=== PATIENT | female | born 1965 | race Caucasian/White ===

== ENCOUNTER 2020-08-21 15:36 | Emergency (ER) | payer OTHER, SELFPAY ==
--- NOTE | 2020-08-21 15:42 | ED.SKABFB ---
HPI - Skin/Abscess/Foreign Bdy General Chief complaint: Skin/Abscess/Foreign Body Stated complaint: pos insect sting Time Seen by Provider: 08/21/20 15:48 Source: patient and RN notes reviewed Mode of arrival: ambulatory Limitations: no limitations History of Present Illness HPI narrative: 84-year-old female presents concern for yellowjacket sting to the right dorsal hand and nose. Reports this happened approximately 45 minutes prior to arrival. Denies any intervention. She denies any swollen lips, swollen tongue, trouble breathing. Reports redness at the sting sites MD complaint: insect bite/sting Related Data Home Medications Medication Instructions Recorded Confirmed ibuprofen 800 mg PO Q6-8H PRN 08/21/20 08/21/20 levothyroxine [Synthroid] 175 mcg PO DAILY 08/21/20 08/21/20 losartan 50 mg PO DAILY 08/21/20 08/21/20 Allergies Allergy/AdvReac Type Severity Reaction Status Date / Time No Known Allergies Allergy Unknown Unverified 08/21/20 15:47 Z-SASHA AdvReac Mild DON'T WORK Uncoded 08/21/20 15:47 Review of Systems Review of Systems: Narrative: CONSTITUTIONAL: Denies malaise, chills, sweats, or fever. EYES: Denies visual changes ENT: Denies rhinorrhea, congestion, swollen lips, swollen tongue CARDIOVASCULAR: Denies chest pain, palpitations, or edema. RESPIRATORY: Denies cough or dyspnea. GASTROINTESTINAL: Denies abdominal pain, nausea, vomiting, diarrhea SKIN: Reports redness at sting site to the nose and the right hand MUSCULOSKELETAL: Denies myalgia. NEUROLOGIC: Denies headache. All systems reviewed & are unremarkable except as noted in HPI and below PMFSH Comments At time of signature, agree with nursing past medical, surgical, social and family history. There is no relevant family history pertinent to the presenting complaint Exam Narrative: Exam Narrative: GENERAL: Well-appearing, well-nourished, and in no acute distress. HEAD: Normocephalic, atraumatic. EYES: PERRLA, conjunctivae clear, and EOMI. ENT: Mucous membranes moist. Oropharynx without edema, erythema or lesions. Nares clear NECK: Supple. No lymphadenopathy CHEST: Clear to auscultation. No respiratory distress. HEART: Regular rate and rhythm. SKIN: Warm, dry. Sting site noted to dorsal right hand with very mild erythema, no tenderness, induration or edema noted. Sting site noted to the front of the nose with mild erythema, no edema, induration, tenderness, no facial swelling NEURO: Alert and oriented x3. PSYCH: Normal mood and affect Course Course Emergency Course: Patient is aware of diagnosis, understands and agrees to treatment plan. Anticipatory guidance given. Patient agrees to follow-up as directed and is aware of reasons to seek care at the emergency department. Portions of this record may have been created with voice recognition software Vital Signs Vital signs: Reviewed. MDM - Skin/Abscess/Foreign Bdy MDM Narrative Medical decision making narrative: Does not appear at this time to be erythema multiforme, bullous, SJS, TEN; no evidence at this time to suggest RMSF, endocarditis or Lyme disease; patient looks well, nontoxic and is tolerating oral intake; no neurologic signs or symptoms; no headache, photophobia or neck pain; afebrile; appropriate for initial outpatient treatment; discussed the importance of follow-up, patient agrees; question, viral exanthema, contact dermatitis, allergic dermatitis, eczema, urticaria, insect sting. No soft palate or uvula edema, no tongue, lip edema or other mucosal involvement, no respiratory compromise, no stridor, no wheezing, no wheezing, no history of syncope, no hypotension, no nausea, vomiting, or diarrhea. Instructed patient to go to nearest ER immediately for any worsening symptoms including but not limited to: fever, spreading rash, pain, sore throat, headache, dizziness, chest pain, trouble breathing, or any symptoms concerning to the patient. Critical Care Time Critical Care Time Jade
[2020-08-21 15:44] VITALS: BP 159/93; PULSE 99; RESP 12; TEMP 37; O2SAT 100
== END 2020-08-21 15:59 | disposition home or self-care (01) ==
PROVIDERS: Emergency Provider Nurse Practitioner; PCP Nurse Practitioner Adult Health
DX: T63.461A Toxic effect of venom of wasps, accidental (unintentional), initial encounter (principal); I10 Essential (primary) hypertension; E03.9 Hypothyroidism, unspecified
CPT/HCPCS: 99213; G0463

== ENCOUNTER 2020-10-05 16:16 | Emergency (ER) | payer OTHER, SELFPAY ==
--- NOTE | ~2020-10-05 | XR_ITS ---
EXAMINATION: XR ankle LT min 3V DATE: 10/05/2020 16:41 INDICATION: Left ankle pain. TECHNIQUE: 4 views of left ankle were obtained. COMPARISON: None. FINDINGS: Bone alignment is normal. No fracture. There is moderate midfoot osteoarthritis. There are enthesophytes at the posterior and plantar aspects of calcaneal tuberosity. IMPRESSION: 1. Moderate midfoot osteoarthritis. Reviewed, dictated and finalized at location B.
[2020-10-05 16:20] VITALS: BP 175/114; PULSE 118; RESP 16; TEMP 36.8; O2SAT 98
--- NOTE | 2020-10-05 16:27 | ED.LOWEXIN ---
HPI - Extremity Injury (Lower) General Chief Complaint: Extremity Injury, Lower Stated Complaint: L FOOT PAIN Time Seen by Provider: 10/05/20 16:27 Source: patient and RN notes reviewed Mode of arrival: ambulatory Limitations: no limitations History of Present Illness HPI Narrative: 55-year-old female presents to the [facility] with complaints of left generalized ankle and foot pain for over a month. Patient states that she is taken ibuprofen with no relief. Has not seen her primary care provider in regards to this. States she is on her feet all day long. Unsure if she is injured it recently. Related Data Home Medications Medication Instructions Recorded Confirmed ibuprofen 800 mg PO Q6-8H PRN 08/21/20 08/21/20 levothyroxine [Synthroid] 175 mcg PO DAILY 08/21/20 08/21/20 losartan 50 mg PO DAILY 08/21/20 08/21/20 Allergies Allergy/AdvReac Type Severity Reaction Status Date / Time No Known Allergies Allergy Unknown Unverified 08/21/20 15:47 Z-SASHA AdvReac Mild DON'T WORK Uncoded 08/21/20 15:47 Review of Systems Review of Systems: All systems reviewed & are unremarkable except as noted in HPI and below Constitutional: Constitutional: Reports no additional constitutional complaints Eyes: Eyes: Reports no additional eye complaints ENT: Reports system reviewed and no additional complaints, except as documented Cardiovascular: Cardiovascular: Reports no additional cardiovascular complaints Respiratory: Respiratory: Reports no additional respiratory complaints Musculoskeletal: Musculoskeletal: Reports as per HPI, Reports arthralgias (Left ankle) and Reports joint swelling (Left lateral ankle) Integumentary/Breasts: Skin/Breast: Reports system reviewed and no additional complaints, except as docu, Denies pruritus and Denies rash Neurologic: Reports system reviewed and no additional complaints, except as documented Psychiatric: Psychiatric: Reports no additional psychiatric complaints Allergic/Immunologic: Allergic/Immunologic: Reports no additional allergic/immunologic complaints PMFSH Past Medical History Medical History Hypertension Thyroid disease Comments At the time of my signature, I reviewed and agree with the nursing past medical, surgical, social, and family history. There is no relevant family history pertinent to the patient complaint. Exam Const: General: no acute distress and alert Nutritional Appearance: well nourished and obese Orientation/consciousness: patient oriented x3 Limitations: no limitations HENMT: Head: normal to inspection Neck: Neck: normal visual inspection, no lymphadenopathy and no meningeal signs Chest: Chest palpation & inspection: normal inspection of the chest Resp: Effort & Inspection: normal respiratory effort Auscultation: clear to auscultation bilaterally Cardio: Rate: regular rate Rhythm: regular rhythm Back/Spine/Pelvis: Back: no CVA tenderness Skin: General skin exam: normal color Rashes: no rashes Wounds: no wounds Neuro: General: patient oriented x3, moves all extremities, no meningeal signs and no focal motor deficits Speech: normal speech Gait exam (Neuro): Normal gait present Extrem: General: normal to inspection Left lower extremity: ankle Details: abnormal to inspection, tenderness, swelling and abnormal ROM Details: pain with active ROM and pain with passive ROM; no pitting edema, no lacerations and no ecchymosis Ankle/foot/toe images: 1. Swelling noted. No fluctuance, no redness, no bruising Psych: Appearance: grossly normal and well kempt Mental Status: mental status grossly normal Affect: normal affect Attitude: cooperative Thought content: Yes Normal thought content present Course Course Emergency Course: Discharge instructions reviewed with patient, as well as provided in writing per nursing staff. The instructions also include specific and strict return/GO TO THE ER as well
== END 2020-10-05 17:12 | disposition home or self-care (01) ==
PROVIDERS: Emergency Provider Nurse Practitioner; PCP Nurse Practitioner Adult Health
DX: M19.072 Primary osteoarthritis, left ankle and foot (principal); I10 Essential (primary) hypertension; E03.9 Hypothyroidism, unspecified
CPT/HCPCS: 73610; 99212; G0463

== ENCOUNTER 2020-10-17 14:40 | Outpatient (CLI) | payer OTHER, SELFPAY ==
[2020-10-17 15:19] LABS: Hematocrit 39.8 % (37.0-47.0); Hemoglobin 13.4 g/dL (12.0-15.0); Mean Corpuscular HGB Conc 33.7 g/dl (32-36); Mean Corpuscular Hemoglobin 28.9 pg (26-34); Mean Platelet Volume 10.8 fl (7.4-10.4); Platelet Count Result 259 k/mm3 (150-375); Red Blood Count 4.63 M/mm3 (4.2-5.4); Red Cell Distribution Width 12.4 % (11.5-14.5); White Blood Count 8.3 K/mm3 (4.5-10.0)
[2020-10-17 15:32] LABS: Alanine Aminotransferase 20 U/L (4-35); Albumin Level 4.6 g/dL (3.5-5.1); Alkaline Phosphatase 91 U/L (38-126); Anion Gap 10 mmol/L (8-16); Aspartate Amino Transferase 20 U/L (14-36); Bilirubin,Total 0.4 mg/dL (0.2-1.3); Blood Urea Nitrogen 10 mg/dL (7-17); Calcium 9.2 mg/dL (8.4-10.2); Carbon Dioxide 25 mmol/L (22-30); Chloride 104 mmol/L (98-107); Cholesterol 225 mg/dL (0-200); Estimated Glomerular Filt Rate > 60; Glucose 122 mg/dL (65-110); HDL Direct 72 mg/dL; Potassium 4.3 mmol/L (3.4-5.0); Sodium 139 mmol/L (137-145); Triglycerides 81 mg/dL (<150); Uric Acid 5.5 mg/dL (2.5-7.5)
[2020-10-17 15:33] LABS: Rheumatoid Factor < 8.6 IU/ML (<12)
[2020-10-17 15:43] LABS: LDL Cholesterol Direct 103 mg/dL
[2020-10-17 15:49] LABS: Erythrocyte Sedimentation Rate 22 mm/hr (0-20)
[2020-10-17 16:02] LABS: Thyroid Stimulating Hormone < 0.015 uIU/mL (0.465-4.680)
[2020-10-17 16:36] LABS: Folic Acid 8.6 ng/mL (2.76->20)
== END 2020-10-17 14:41 | disposition home or self-care (01) ==
PROVIDERS: PCP Nurse Practitioner Adult Health; Visit Provider Nurse Practitioner Adult Health
DX: M13.0 Polyarthritis, unspecified (principal); E03.9 Hypothyroidism, unspecified; I10 Essential (primary) hypertension; Z13.9 Encounter for screening, unspecified
CPT/HCPCS: 36415; 80053; 80061; 82607; 82746; 84443; 84550; 85027; 85652; 86038; 86430

== ENCOUNTER 2021-01-27 12:01 | Outpatient (CLI) | payer OTHER, SELFPAY ==
[2021-01-27 13:32] LABS: Alanine Aminotransferase 20 U/L (4-35); Albumin Level 4.3 g/dL (3.5-5.1); Alkaline Phosphatase 95 U/L (38-126); Anion Gap 9 mmol/L (8-16); Aspartate Amino Transferase 24 U/L (14-36); Bilirubin,Total 0.5 mg/dL (0.2-1.3); Blood Urea Nitrogen 8 mg/dL (7-17); Carbon Dioxide 25 mmol/L (22-30); Chloride 102 mmol/L (98-107); Cholesterol 208 mg/dL (0-200); Estimated Glomerular Filt Rate > 60; Glucose 107 mg/dL (65-110); HDL Direct 52 mg/dL; Potassium 3.9 mmol/L (3.4-5.0); Sodium 136 mmol/L (137-145); Triglycerides 96 mg/dL (<150)
[2021-01-27 13:43] LABS: LDL Cholesterol Direct 123 mg/dL
== END 2021-01-27 12:02 | disposition home or self-care (01) ==
LOC: ANHLAB 12:06
PROVIDERS: PCP Nurse Practitioner Adult Health; Visit Provider Nurse Practitioner Adult Health
DX: E03.9 Hypothyroidism, unspecified (principal); I10 Essential (primary) hypertension
CPT/HCPCS: 36415; 80053; 80061; 84443

== ENCOUNTER 2021-02-01 16:15 | Emergency (ER) | payer OTHER, SELFPAY ==
--- NOTE | ~2021-02-01 | XR_ITS ---
EXAMINATION: XR chest 2V 02/01/2021 16:44 INDICATION: Cough for 6 days PROCEDURE: 2 view chest COMPARISON: 07/10/2017 FINDINGS: The lungs are clear. The cardiomediastinal silhouette is within normal limits. There are no pleural effusions. There is no pneumothorax suspected. IMPRESSION: 1: NO ACUTE CARDIOPULMONARY DISEASE. Reviewed, dictated and finalized at location A. [employer]
[2021-02-01 16:22] VITALS: BP 185/95; PULSE 115; RESP 16; TEMP 36.6; O2SAT 100
--- NOTE | 2021-02-01 16:36 | ED.URI ---
HPI - URI/Sore Throat General Chief Complaint: Upper Respiratory Infection Stated Complaint: cough/sore throat Time Seen by Provider: 02/01/21 16:25 Source: patient and RN notes reviewed Mode of arrival: ambulatory Limitations: no limitations History of Present Illness HPI Narrative: Patient presents today with a 6-day history of cough, sore throat, ear pain left greater than right, fever up to 100. Reports symptoms have worsened over the last 2 days. Denies congestion, rhinorrhea, headache, nausea, vomiting, diarrhea, shortness of breath. No history of asthma or COPD. Patient is a non-smoker. She has been taking some [id number] cold and flu medication as well as Tylenol without much relief. She currently rates her pain 610. Patient has had her first COVID-19 vaccine. She has tested weekly. Her last test was 5 days ago and was negative. MD elicited complaint: cough and sore throat Related Data Home Medications Medication Instructions Recorded Confirmed ibuprofen 800 mg PO Q6-8H PRN 08/21/20 08/21/20 levothyroxine [Synthroid] 175 mcg PO DAILY 08/21/20 08/21/20 losartan 50 mg PO DAILY 08/21/20 08/21/20 Allergies Allergy/AdvReac Type Severity Reaction Status Date / Time No Known Allergies Allergy Unknown Unverified 08/21/20 15:47 Z-SASHA AdvReac Mild DON'T WORK Uncoded 08/21/20 15:47 Review of Systems Review of Systems: CONSTITUTIONAL: Denies body aches, chills, or sweats.+ Fever EYES: Denies visual changes, redness, or discharge. ENT: Denies rhinorrhea, congestion, + throat, bilateral ear pain CARDIOVASCULAR: Denies chest pain, palpitations, or edema. RESPIRATORY: Denies dyspnea.+ Cough GASTROINTESTINAL: Denies abdominal pain, nausea, vomiting, or diarrhea. GENITOURINARY: Denies dysuria or hematuria. SKIN: Denies rash, itching, or wounds. MUSCULOSKELETAL: Denies back pain, joint pain, or myalgia. NEUROLOGIC: Denies headache, numbness, tingling, or weakness. PSYCH: Denies depression or anxiety. [facility] Past Medical History Medical History Hypertension Thyroid disease Comments At time of signature, I have reviewed and agree with nursing past medical, surgical, social and family history unless otherwise noted. Please see nursing chart for further information. There is no relevant family history pertinent to the presenting complaint Exam Narrative: GENERAL: Well-appearing, well-nourished, and in no acute distress. HEAD: Normocephalic, atraumatic. EYES: EOMI. No redness or drainage. Conjunctivae normal. ENT: Mucous membranes pink and moist. Nares clear. No rhinorrhea. TMs normal bilaterally. Throat erythematous without edema. Draining white pustule to left posterior pharynx. Uvula midline. NECK: Normal AROM. Supple. No lymphadenopathy. CHEST: No respiratory distress. Clear to auscultation. HEART: Regular rate and rhythm. No murmur appreciated. Normal peripheral pulses. EXTREMITIES: Normal range of motion. No edema. SKIN: Warm, dry, no rash. Capillary refill normal. Normal skin turgor. NEURO: No focal deficits. Alert and oriented x3. Gait steady. PSYCH: Normal affect. No signs of depression or anxiety. Course Vital Signs Vital signs: Vital Signs Temperature 97.8 F 02/01/21 16:22 Pulse Rate 115 H 02/01/21 16:22 Respiratory Rate 16 02/01/21 16:22 Blood Pressure 185/95 H 02/01/21 16:22 Pulse Oximetry 100 02/01/21 16:22 Temperature 97.8 F 02/01/21 16:22 Pulse Rate 115 H 02/01/21 16:22 Respiratory Rate 16 02/01/21 16:22 Blood Pressure 185/95 H 02/01/21 16:22 Pulse Oximetry 100 02/01/21 16:22 Reviewed. Pt has been instructed to follow up with her PCP regarding her elevated blood pressure today. MDM - URI/Sore Throat Differential Diagnosis Differential diagnosis: Likely upper respiratory infection, otitis media, viral infection, bronchitis, pharyngitis and other (Strep throat, COVID-19, pneumonia) [place]
== END 2021-02-01 17:10 | disposition home or self-care (01) ==
PROVIDERS: Emergency Provider Nurse Practitioner; PCP Nurse Practitioner Adult Health
DX: J40 Bronchitis, not specified as acute or chronic (principal); I10 Essential (primary) hypertension; Z20.822 Contact with and (suspected) exposure to COVID-19
CPT/HCPCS: 71046; 87081; 87426; 87880; 99213; C9803; G0463

== ENCOUNTER → 2021-09-01 02:15 | Outpatient (CLI) | payer SELFPAY ==
[2021-09-01 12:38] LABS: SARS-CoV-2 RNA PCR Negative
== END ==
PROVIDERS: PCP Nurse Practitioner Adult Health
DX: Z20.822 Contact with and (suspected) exposure to COVID-19 (principal)
CPT/HCPCS: C9803; U0003; U0005

== ENCOUNTER 2021-12-09 20:28 | Emergency (ER) | payer OTHER, SELFPAY ==
[2021-12-09 20:50] VITALS: BP 157/102; PULSE 88; RESP 16; TEMP 36.7; O2SAT 100
[2021-12-09 21:46] VITALS: BP 186/91; O2SAT 99
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
[2021-12-09] MEDS: CEPHALEXIN 500 MG CAPSULE PO (23:59)
[2021-12-09] MEDS: predniSONE 40 MG, predniSONE 10 MG 50 MG PO (23:59)
[2021-12-10 00:02] VITALS: BP 164/113; PULSE 97; RESP 16; O2SAT 98
== END 2021-12-10 00:03 | disposition home or self-care (01) ==
PROVIDERS: Emergency Provider Emergency Medicine; PCP Nurse Practitioner Adult Health
DX: L25.9 Unspecified contact dermatitis, unspecified cause (principal); I10 Essential (primary) hypertension; E07.9 Disorder of thyroid, unspecified
CPT/HCPCS: 99283; A9270; J7512

== ENCOUNTER 2022-03-06 14:27 | Outpatient (CLI) | payer OTHER, SELFPAY ==
[2022-03-06 15:02] LABS: Anion Gap 9 mmol/L (8-16); Blood Urea Nitrogen 8 mg/dL (7-17); Calcium 9.1 mg/dL (8.4-10.2); Carbon Dioxide 24 mmol/L (22-30); Chloride 106 mmol/L (98-107); Estimated Glomerular Filt Rate > 60; Glucose 93 mg/dL (65-110); Magnesium 2.3 mg/dL (1.6-2.3); Potassium 4.1 mmol/L (3.4-5.0); Sodium 139 mmol/L (137-145)
[2022-03-06 15:33] LABS: Thyroid Stimulating Hormone 0.048 uIU/mL (0.465-4.680)
[2022-03-08 22:23] LABS: Ionized Calcium 4.9 mg/dL (4.8-5.6)
== END 2022-03-06 14:28 | disposition home or self-care (01) ==
LOC: ANHLAB 14:30
PROVIDERS: PCP Nurse Practitioner Adult Health; Visit Provider Nurse Practitioner Family
DX: E03.9 Hypothyroidism, unspecified (principal); R25.2 Cramp and spasm
CPT/HCPCS: 36415; 80048; 82330; 83735; 84443

== ENCOUNTER 2022-04-03 21:35 | Emergency (ER) | payer OTHER, SELFPAY ==
[2022-04-03 21:45] VITALS: BP 167/102; PULSE 101; RESP 16; TEMP 36.9; O2SAT 98
--- NOTE | 2022-04-03 23:52 | ED.SKABFB ---
HPI - Skin/Abscess/Foreign Bdy General Chief complaint: Skin/Abscess/Foreign Body Stated complaint: allergic reaction Time Seen by Provider: 04/03/22 22:57 Source: patient Mode of arrival: ambulatory Limitations: no limitations History of Present Illness HPI narrative: Patient is a 56-year-old female who presents the ED with report of a rash to her bilateral hands. Patient reports the rash has been present since October. It has been present on her dorsal hands bilaterally, ending around the edge of her wrists. It is very dry, red, papular, pruritic, nonpainful. She has been trying several different lotions and skin creams without relief. Today, the rash seemed to spread up her forearms. She also noticed a spot of rash on her neck and chin. She denies any known allergens. 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 She does not wear gloves at work. She has been working at the facility for 2 years. She denies any fevers, lip or tongue swelling, difficulty breathing or swallowing, fevers. Related Data Home Medications Medication Instructions Recorded Confirmed ibuprofen 800 mg tablet 800 mg PO Q6-8H PRN Pain (Scale 08/21/20 08/21/20 Score 7-10) levothyroxine 175 mcg tablet 175 mcg PO DAILY 08/21/20 08/21/20 (Synthroid) losartan 50 mg tablet 50 mg PO DAILY 08/21/20 08/21/20 tramadol 50 mg tablet mg 12/09/21 Allergies Allergy/AdvReac Type Severity Reaction Status Date / Time No Known Allergies Allergy Unknown Verified 04/03/22 21:45 Z-SASHA AdvReac Mild DON'T WORK Uncoded 04/03/22 21:45 Review of Systems Review of Systems: CONSTITUTIONAL: Denies fever, chills, or sweats. CARDIOVASCULAR: Denies chest pain. RESPIRATORY: Denies dyspnea. GASTROINTESTINAL: Denies abdominal pain, nausea, vomiting. SKIN: See HPI. All systems reviewed & are unremarkable except as noted in HPI and below PMFSH Past Medical History Medical History (Updated 04/04/22 @ 00:10 by Kaylene Martin PA-C) Hypertension Thyroid disease Surgical History Surgical History (Updated 04/03/22 @ 23:58 by Kaylene Martin PA-C) No pertinent past surgical history Social History Social History (Updated 04/03/22 @ 23:58 by Kaylene Martin PA-C) Smoking status: Never smoker Exam Narrative: GENERAL: Well appearing, morbidly obese, non-toxic, in no acute distress. HEAD: Normocephalic, atraumatic. NECK: Supple. No adenopathy, no masses. RESPIRATORY: Airway patent, respirations nonlabored. CARDIOVASCULAR: Regular rate and rhythm without murmurs, rubs, or gallops. Radial pulses 2+ and equal bilaterally. MUSCULOSKELETAL: Moves all extremities. Strength/ROM intact without gross deformities. SKIN: Diffuse xerosis, erythematous maculopapular rash encompassing entirety of dorsums of hands bilaterally, excluding fingers, extending a few fingerbreaths over wrist into forearms. Few scattered satellite lesions on forearms, R>L, upper chest, chin. No overlying white scaling. Few small cracks in skin from dryness. NEURO: A&O X3. Speech clear. Cranial nerves II-XII grossly intact. Steady gait. No ataxic movements. PSYCHIATRIC: Appropriate mood and affect. Normal interaction. Course Vital Signs Vital signs: Vital Signs Temperature 98.4 F 04/03/22 21:45 Pulse Rate 101 H 04/03/22 21:45 Respiratory Rate 16 04/03/22 21:45 Blood Pressure 167/102 H 04/03/22 21:45 Pulse Oximetry 98 04/03/22 21:45 Oxygen Delivery Room Air 04/03/22 21:45 Temperature 97.0 F L 04/04/22 00:38 Pulse Rate 94 04/04/22 00:38 Respiratory Rate 16 04/04/22 00:38 Blood Pressure 174/110 H 04/04/22 00:38 Pulse Oximetry 96 04/04/22 00:38 Oxygen Delivery Room Air 04/03/22 21:45 MDM - Skin/Abscess/Foreign Bdy MDM Narrative Medical decision making narrative: Patient presented to ED with several month history of diffuse xerosis and rash to hands. Exam consistent with eczema vs irritant contact de
[2022-04-04 00:38] VITALS: BP 174/110; PULSE 94; RESP 16; TEMP 36.1; O2SAT 96
== END 2022-04-04 00:38 | disposition home or self-care (01) ==
PROVIDERS: Emergency Provider Physician Assistant; PCP Nurse Practitioner Family
DX: L24.9 Irritant contact dermatitis, unspecified cause (principal); I10 Essential (primary) hypertension; E07.9 Disorder of thyroid, unspecified
CPT/HCPCS: 99283

== ENCOUNTER 2022-07-04 11:48 | Emergency (ER) | payer OTHER, SELFPAY ==
[2022-07-04 11:49] VITALS: BP 183/90; PULSE 118; RESP 18; TEMP 36.8; O2SAT 98
--- NOTE | 2022-07-04 13:12 | ED.EXTPRO ---
HPI - Extremity Problem General Chief complaint: Extremity Problem,Nontraumatic Stated complaint: back and foot isues Time Seen by Provider: 07/04/22 12:01 History of Present Illness HPI Narrative: Patient is a 56-year-old female with a history of hypothyroidism, hypertension presenting with low back pain. Patient states that for the last 2 weeks she has had lower back pain that radiates into both of her buttocks. States the pain is worse with movement, coughing, turning. States that both of her legs have also felt numb below the knees for the last 2 weeks. Denies saddle anesthesia, bladder or bowel incontinence, fevers. No IVDA. Patient states that she has been taking ibuprofen and tramadol with minimal relief. Patient states that she has been trying to get a hold of her PCP for the last several weeks but they have not returned her call so she came in for evaluation. Denies fevers, headache, neck or upper back pain, chest pain, abdominal pain, nausea or vomiting. Related Data Home Medications Medication Instructions Recorded Confirmed ibuprofen 800 mg tablet 800 mg PO Q6-8H PRN Pain (Scale 08/21/20 08/21/20 Score 7-10) levothyroxine 175 mcg tablet 175 mcg PO DAILY 08/21/20 08/21/20 (Synthroid) losartan 50 mg tablet 50 mg PO DAILY 08/21/20 08/21/20 tramadol 50 mg tablet mg 12/09/21 Allergies Allergy/AdvReac Type Severity Reaction Status Date / Time No Known Allergies Allergy Unknown Verified 07/04/22 11:56 Z-SASHA AdvReac Mild DON'T WORK Uncoded 04/03/22 21:45 Review of Systems Review of Systems: All systems reviewed & are unremarkable except as noted in HPI and below PMFSH Past Medical History Medical History Hypertension Thyroid disease Surgical History Surgical History No pertinent past surgical history Social History Social History Smoking status: Never smoker Exam Narrative: GENERAL: Well-appearing, well-nourished, and in no acute distress. HEAD: Normocephalic, atraumatic. EYES: PERRLA and EOMI. ENT: Nares clear, no rhinorrhea or epistaxis. Mucous membranes moist. NECK: Supple. CHEST: No respiratory distress. HEART: Regular rate and rhythm ABDOMEN: Soft, nontender, nondistended, normal active bowel sounds. EXTREMITIES: normal ROM, ambulating with antalgic gait BACK: +lumbar spine tenderness extending into bilateral buttocks SKIN: Warm, dry, no rash. NEURO: No focal deficits. Alert and oriented x3. PSYCH: Normal mood and affect. Course Vital Signs Vital signs: Vital Signs Temperature 98.2 F 07/04/22 11:49 Pulse Rate 118 H 07/04/22 11:49 Respiratory Rate 18 07/04/22 11:49 Blood Pressure 183/90 H 07/04/22 11:49 Pulse Oximetry 98 07/04/22 11:49 Oxygen Delivery Room Air 07/04/22 11:49 Temperature 98.2 F 07/04/22 11:49 Pulse Rate 118 H 07/04/22 11:49 Respiratory Rate 18 07/04/22 11:49 Blood Pressure 183/90 H 07/04/22 11:49 Pulse Oximetry 98 07/04/22 11:49 Oxygen Delivery Room Air 07/04/22 11:49 MDM - Extremity (Nontraumatic) MDM Narrative Medical decision making narrative: Patient is a 56-year-old female presenting with several weeks of lower back pain that it extends into both legs associated with paresthesias. Exam is remarkable for the above. She denies any red flag symptoms and she does not have neurologic deficits on exam so I do not feel imaging is warranted at this time. Suspect lumbar radiculopathy as a cause of her symptoms. Do not suspect cauda equina or emergent cord compression given the lack of neurologic deficits and red flag symptoms. Do not suspect vascular cause of symptoms given the several weeks of ongoing symptoms and normal pulses. We will start her on a steroid burst and advised that she continue taking ibuprofen for pain control. We will provide the
[2022-07-04] MEDS: predniSONE 20 MG TABLET 60 MG PO (13:25)
[2022-07-04] MEDS: LIDOCAINE 5% PATCH 1 PATCH TRANSDERM (13:25)
== END 2022-07-04 13:35 | disposition home or self-care (01) ==
PROVIDERS: Emergency Provider Emergency Medicine; PCP Nurse Practitioner Family
DX: M54.16 Radiculopathy, lumbar region (principal); I10 Essential (primary) hypertension; E03.9 Hypothyroidism, unspecified
CPT/HCPCS: 99283; A9270; J7512

== ENCOUNTER 2022-08-13 09:34 | Emergency (ER) | payer OTHER, SELFPAY ==
[2022-08-13 09:49] VITALS: BP 172/94; PULSE 98; RESP 18; TEMP 36.4; O2SAT 97
--- NOTE | 2022-08-13 10:03 | ED.GENADULT ---
HPI - General Adult General Chief complaint: Head Injury Stated complaint: head injury Time Seen by Provider: 08/13/22 09:46 Source: patient Mode of arrival: ambulatory Limitations: no limitations History of Present Illness HPI narrative: This is a 56-year-old female who presents to the ED with chief complaint of a head injury occurring at work. 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 She reports that she was pulling an air hose that was connected by a spring. She reports when she pulled it the cord came off in the spring unloaded causing the air hose to hit her in the head. Reports a small laceration to the right scalp. Reports some throbbing in the area. Denies any LOC or falls. Denies any neurologic symptoms. Denies blood thinner use. Denies any further site of pain or injury. Related Data Home Medications Medication Instructions Recorded Confirmed ibuprofen 800 mg tablet 800 mg PO Q6-8H PRN Pain (Scale 08/21/20 08/21/20 Score 7-10) levothyroxine 175 mcg tablet 175 mcg PO DAILY 08/21/20 08/21/20 (Synthroid) losartan 50 mg tablet 50 mg PO DAILY 08/21/20 08/21/20 tramadol 50 mg tablet mg 12/09/21 Allergies Allergy/AdvReac Type Severity Reaction Status Date / Time No Known Allergies Allergy Unknown Verified 07/04/22 11:56 Z-SASHA AdvReac Mild DON'T WORK Uncoded 04/03/22 21:45 PMFSH Past Medical History Medical History Hypertension Thyroid disease Surgical History Surgical History No pertinent past surgical history Social History Social History Smoking status: Never smoker Exam Narrative: GENERAL: Well-appearing, well-nourished, and in no acute distress. HEAD: Normocephalic, atraumatic. EYES: PERRLA and EOMI. ENT: Nares clear, no rhinorrhea or epistaxis. Mucous membranes moist. Oropharynx without tonsillar hypertrophy exudate or other lesions. NECK: Supple. No adenopathy or masses. CHEST: No respiratory distress. Clear to auscultation. No wheezes rales or rhonchi HEART: Regular rate and rhythm. No murmur heard. Normal peripheral pulses. ABDOMEN: Soft, nontender, nondistended, normal active bowel sounds. MSK: Normal range of motion. No edema. SKIN: 0.5 cm laceration to the right frontal scalp. No active bleeding. No bruising. No hematoma. NEURO: Alert and oriented x3. No focal deficits. PSYCH: Normal mood and affect. Course Vital Signs Vital signs: Vital Signs Temperature 97.5 F L 08/13/22 09:49 Pulse Rate 98 08/13/22 09:49 Respiratory Rate 18 08/13/22 09:49 Blood Pressure 172/94 H 08/13/22 09:49 Pulse Oximetry 97 08/13/22 09:49 Oxygen Delivery Room Air 08/13/22 09:49 Temperature 97.5 F L 08/13/22 09:49 Pulse Rate 98 08/13/22 09:49 Respiratory Rate 18 08/13/22 09:49 Blood Pressure 172/94 H 08/13/22 09:49 Pulse Oximetry 97 08/13/22 09:49 Oxygen Delivery Room Air 08/13/22 09:49 Procedures Laceration Laceration 1: Date: 08/13/22 Time: 10:19 Site: scalp Side (If applicable): right Size (cm): 0.5 Description: linear Depth: simple, single layer Local Anesthetic: none Pre-repair: irrigated extensively ====== Skin Level ====== Skin layer closed with: dermabond ====== Subcutaneous Layer ====== ====== Muscle Layer ====== ====== Tendon Layer ====== Dressing: none Medical Decision Making MDM Narrative Medical decision making narrative: This is a 56-year-old female presents to the ED with chief complaint of head injury at work today. 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 Vitals are normal. Exam shows a superficial 0.5 cm laceration to the right frontal scalp. Neurologic exam fully intact. The laceration was well cleaned here in the
== END 2022-08-13 10:48 | disposition home or self-care (01) ==
PROVIDERS: Emergency Provider Physician Assistant; PCP Family Medicine
DX: S01.01XA Laceration without foreign body of scalp, initial encounter (principal); I10 Essential (primary) hypertension; Z79.1 Long term (current) use of non-steroidal anti-inflammatories (NSAID); W20.8XXA Other cause of strike by thrown, projected or falling object, initial encounter; Y99.0 Civilian activity done for income or pay
CPT/HCPCS: 12001; 99283

== ENCOUNTER 2022-09-24 13:07 | Outpatient (CLI) | payer OTHER, SELFPAY ==
[2022-09-24 13:40] LABS: Basophils Absolute Auto 0.1 K/mm3 (0.0-0.1); Basophils Percent Auto 1.1 % (0.2-1.2); Eosinophils Absolute Auto 0.2 K/mm3 (0-0.3); Eosinophils Percent Auto 3.2 % (0-4.4); Hematocrit 41.7 % (37.0-47.0); Hemoglobin 13.5 g/dL (12.0-15.0); Immature Granulocyte Absolute 0.01 K/mm3 (0.00-0.031); Immature Granulocyte Percent A 0.2 % (0-0.5); Lymphocytes Absolute Auto 2.05 K/mm3 (0.9-3.2); Mean Corpuscular HGB Conc 32.4 g/dl (32-36); Mean Corpuscular Hemoglobin 28.7 pg (26-34); Mean Corpuscular Volume 88.5 fl (80-100); Mean Platelet Volume 10.8 fl (7.4-10.4); Monocytes Absolute Auto 0.5 K/mm3 (0.1-0.6); Monocytes Percent Auto 7.2 % (2.6-8.5); Neutrophils Absolute Auto 3.4 K/mm3 (1.3-6.7); Neutrophils Percent Auto 55.3 % (45.5-73.1); Platelet Count Result 255 k/mm3 (150-375); Red Blood Count 4.71 M/mm3 (4.2-5.4); Red Cell Distribution Width 11.7 % (11.5-14.5); White Blood Count 6.2 K/mm3 (4.5-10.0)
[2022-09-24 13:55] LABS: Alanine Aminotransferase 25 U/L (6-35); Albumin Level 4.5 g/dL (3.5-5.1); Alkaline Phosphatase 87 U/L (38-126); Anion Gap 6 mmol/L (8-16); Aspartate Amino Transferase 27 U/L (14-36); Bilirubin,Total 0.4 mg/dL (0.2-1.3); Blood Urea Nitrogen 16 mg/dL (7-17); Carbon Dioxide 29 mmol/L (22-30); Chloride 99 mmol/L (98-107); Cholesterol 214 mg/dL (0-200); Estimated Glomerular Filt Rate > 60; Glucose 95 mg/dL (65-110); HDL Direct 58 mg/dL; Magnesium 2.5 mg/dL (1.6-2.3); Potassium 4.7 mmol/L (3.4-5.0); Sodium 134 mmol/L (137-145); Triglycerides 84 mg/dL (<150)
[2022-09-24 14:06] LABS: LDL Cholesterol Direct 116 mg/dL
[2022-09-24 15:00] LABS: Folic Acid 10.4 ng/mL (2.76->20)
[2022-09-24 17:10] LABS: Hemoglobin A1C 5.8 % (<5.7)
== END 2022-09-24 13:08 | disposition home or self-care (01) ==
LOC: ANHLAB 13:10
PROVIDERS: PCP Family Medicine; Visit Provider Family Medicine
DX: R25.2 Cramp and spasm (principal); I10 Essential (primary) hypertension; Z13.220 Encounter for screening for lipoid disorders; E53.8 Deficiency of other specified B group vitamins; E03.9 Hypothyroidism, unspecified
CPT/HCPCS: 36415; 80048; 80061; 80076; 82607; 82746; 83036; 83735; 84443; 85025

== ENCOUNTER 2022-10-02 13:58 | Outpatient (CLI) | payer OTHER, SELFPAY ==
[2022-10-02 15:13] LABS: Alanine Aminotransferase 24 U/L (6-35); Albumin Level 4.3 g/dL (3.5-5.1); Alkaline Phosphatase 84 U/L (38-126); Anion Gap 8 mmol/L (8-16); Aspartate Amino Transferase 25 U/L (14-36); Bilirubin,Total 0.4 mg/dL (0.2-1.3); Blood Urea Nitrogen 15 mg/dL (7-17); Carbon Dioxide 25 mmol/L (22-30); Chloride 105 mmol/L (98-107); Estimated Glomerular Filt Rate > 60; Glucose 93 mg/dL (65-110); Magnesium 2.2 mg/dL (1.6-2.3); Potassium 3.9 mmol/L (3.4-5.0); Sodium 138 mmol/L (137-145)
[2022-10-02 16:19] LABS: Folic Acid 5.9 ng/mL (2.76->20)
== END 2022-10-02 13:59 | disposition home or self-care (01) ==
LOC: ANHLAB 13:59
PROVIDERS: PCP Family Medicine; Visit Provider Family Medicine
DX: E53.8 Deficiency of other specified B group vitamins (principal); I10 Essential (primary) hypertension; R25.2 Cramp and spasm
CPT/HCPCS: 36415; 80048; 80076; 82607; 82746; 83735

== ENCOUNTER 2022-10-19 15:53 | Outpatient (CLI) | payer OTHER, SELFPAY ==
--- NOTE | ~2022-10-19 | MR_ITS ---
EXAMINATION: MR ankle LT wo con DATE: 10/19/2022 16:40 INDICATION: Left ankle pain TECHNIQUE: Magnetic resonance imaging (MRI) of the left ankle was performed without intravenous contr ast. Sequences included sagittal, coronal, and axial proton-density weighted fast spin echo without a nd with fat saturation. COMPARISON: None. FINDINGS: Medial ankle ligaments: There is thickening of the superficial deltoid ligament without surrounding edema consistent with sca rring related to chronic sprain. Also consistent with chronic sprain are tiny osteophytes at the medi al malleolar attachment of the deep deltoid ligament. The spring ligament complex remains normal. Lateral ankle ligaments: The anterior and posterior inferior tibiofibular ligaments are normal. The posterior talofibular and calcaneofibular ligaments are normal. Thickening and mild increased signal of the anterior talofibula r ligament also consistent with scarring related to chronic sprain. Tendons: Achilles tendon is normal. The peroneus longus and brevis tendons are normal. The tibialis anterior a nd extensor hallucis longus and extensor digitorum longus tendons are normal. The tibialis posterior, flexor digitorum longus and flexor hallucis longus tendons are normal. Plantar fascia: Moderate-sized plantar calcaneal spur. There is thickening and mild increased signal of the central a nd lateral components of the plantar aponeurosis without surrounding soft tissue or marrow edema cons istent with chronic enthesopathy. Bones/other: No fractures. There is polyarticular osteoarthritis, moderate severity at the subtalar joint and at t he talonavicular, medial naviculocuneiform and second and third tarsal metatarsal joints, each with a ssociated subarticular edema-like signal change. Less severe mild osteoarthritis at the ankle, and re maining joints in the midfoot. There are prominent enthesophytes along the dorsal margins of the tars al bones most prominent at the talonavicular articulation with some additional heterotopic ossicles a long the dorsal capsule suggesting sequela of prior trauma. Fluid: Physiologic amount fluid in the joint space. Mild subcutaneous edema about the ankle, distal lower le g and extending over the dorsum of the foot. No tenosynovitis, bursitis or other abnormal fluid colle ctions. IMPRESSION: 1. Stigmata of chronic medial and lateral ankle sprains. 2. Moderate polyarticular osteoarthritis in the mid and hindfoot. 2. Chronic plantar calcaneal enthesopathy. Reviewed, dictated and finalized at location A.
== END 2022-10-19 15:54 | disposition home or self-care (01) ==
PROVIDERS: PCP Family Medicine; Visit Provider Family Medicine
DX: M19.072 Primary osteoarthritis, left ankle and foot (principal); M77.32 Calcaneal spur, left foot
CPT/HCPCS: 73721

== ENCOUNTER 2023-09-13 15:52 | Outpatient (CLI) | payer OTHER, SELFPAY ==
[2023-09-13 16:27] LABS: Basophils Absolute Auto 0.1 K/mm3 (0.0-0.1); Basophils Percent Auto 1.1 % (0.2-1.2); Eosinophils Absolute Auto 0.1 K/mm3 (0-0.3); Eosinophils Percent Auto 2.4 % (0-4.4); Hematocrit 37.8 % (37.0-47.0); Hemoglobin 12.8 g/dL (12.0-15.0); Lymphocytes Absolute Auto 2.03 K/mm3 (0.9-3.2); Lymphocytes Percent Auto 44.2 % (18.3-44.2); Mean Corpuscular HGB Conc 33.9 g/dl (32-36); Mean Corpuscular Volume 88.5 fl (80-100); Mean Platelet Volume 11.6 fl (7.4-10.4); Monocytes Absolute Auto 0.4 K/mm3 (0.1-0.6); Monocytes Percent Auto 8.5 % (2.6-8.5); Neutrophils Percent Auto 43.8 % (45.5-73.1); Platelet Count Result 162 k/mm3 (150-375); Red Blood Count 4.27 M/mm3 (4.2-5.4); Red Cell Distribution Width 12.1 % (11.5-14.5); White Blood Count 4.6 K/mm3 (4.5-10.0)
[2023-09-13 16:48] LABS: Alanine Aminotransferase 21 U/L (6-35); Albumin Level 4.4 g/dL (3.5-5.1); Alkaline Phosphatase 92 U/L (38-126); Anion Gap 9 mmol/L (4-12); Aspartate Amino Transferase 29 U/L (14-36); Bilirubin,Total 0.7 mg/dL (0.2-1.3); Blood Urea Nitrogen 15 mg/dL (7-17); Calcium 9.2 mg/dL (8.4-10.2); Carbon Dioxide 27 mmol/L (22-30); Chloride 99 mmol/L (98-107); Cholesterol 221 mg/dL (0-200); Estimated Glomerular Filt Rate > 60; Glucose 81 mg/dL (65-110); HDL Direct 64 mg/dL; Magnesium 2.1 mg/dL (1.6-2.3); Potassium 4.1 mmol/L (3.4-5.0); Sodium 135 mmol/L (137-145); Triglycerides 71 mg/dL (<150)
[2023-09-13 16:59] LABS: LDL Cholesterol Direct 123 mg/dL
[2023-09-13 17:19] LABS: Thyroid Stimulating Hormone Reflex 0.445 uIU/mL (0.465-4.68)
[2023-09-13 18:50] LABS: Free T4 Free Thyroxine Reflex 1.99 ng/dL (0.78-2.19)
[2023-09-13 20:25] LABS: Total Triiodothyronine (T3) 1.43 NG/ML (0.97-1.69)
== END 2023-09-13 15:53 | disposition home or self-care (01) ==
LOC: ANHLAB 15:53
PROVIDERS: PCP Nurse Practitioner Adult Health; Visit Provider Nurse Practitioner Adult Health
DX: I10 Essential (primary) hypertension (principal)
CPT/HCPCS: 36415; 80053; 80061; 83735; 84439; 84443; 84480; 85025

== ENCOUNTER 2023-10-15 14:10 | Emergency (ER) | payer OTHER, SELFPAY ==
--- NOTE | 2023-10-15 14:19 | ED.GENADULT ---
HPI - General Adult General Chief complaint: Nausea/Vomiting/Diarrhea Stated complaint: Headache/Vomiting Time Seen by Provider: 10/15/23 14:19 Source: patient, RN notes reviewed and old records reviewed Mode of arrival: ambulatory Limitations: no limitations History of Present Illness HPI narrative: 58-year-old female to [facility] for complaint loose stools, headache, vomiting for nearly 2 weeks that has become acutely worse past 3 days. Patient reports approximately 4 loose stools per day over the past 3 days with her last bowel movement being this morning. Patient reports not vomiting since yesterday and states she believes it be because she has not had anything to eat recently. Patient reports taking negative COVID test at home yesterday. Patient reports treating at home with Tylenol cold and flu as well as Pepto. Patient denies any urinary changes and reports urinating 4-5 times per day; last urinated this morning. Patient denies sore throat, ear pain, dizziness, abdominal pain, back pain, shortness of breath, chest pain. Patient states that she is able to tolerate fluids by mouth and has been able to keep down gomez isidro, coke, and water. Respirations even and nonlabored. Patient able to speak in full sentences without difficulty. Patient in no acute distress. Related Data Home Medications Medication Instructions Recorded Confirmed cyclobenzaprine 5 mg tablet 5 mg PO TID PRN Pain 09/03/23 10/15/23 tramadol 50 mg tablet 50 mg PO TID PRN Pain 09/03/23 10/15/23 Allergies Allergy/AdvReac Type Severity Reaction Status Date / Time No Known Allergies Allergy Unknown Verified 09/03/23 14:55 Z-SASHA AdvReac Mild DON'T WORK Uncoded 09/03/23 14:55 Review of Systems Review of Systems: All systems reviewed & are unremarkable except as noted in HPI and below Constitutional: Constitutional: Reports as per HPI, Reports fatigue, Reports headache(s) and Reports poor appetite Eyes: Eyes: Reports no additional eye complaints ENT: Reports system reviewed and no additional complaints, except as documented Cardiovascular: Cardiovascular: Reports no additional cardiovascular complaints, Denies chest pain and Denies dyspnea Respiratory: Respiratory: Reports no additional respiratory complaints, Denies cough and Denies dyspnea Gastrointestinal: Gastrointestinal: Reports as per HPI, Reports change in stool character (loose), Reports nausea and Reports vomiting Musculoskeletal: Musculoskeletal: Reports no additional musculoskeletal complaints Neurologic: Reports system reviewed and no additional complaints, except as documented Psychiatric: Psychiatric: Reports no additional psychiatric complaints [facility] Past Medical History Medical History Hypertension Thyroid disease Surgical History Surgical History No pertinent past surgical history Family History Family History Father Hypertension Mother Stomach cancer Sibling Disorder of thyroid Social History Social History Smoking status: Never smoker Alcohol intake: never Substance use type: does not use Lack of Transportation: No Lack of Food: Never True Current Housing: I Have Housing Concerned About Future Housing: No Difficulty Paying Gas/Electric Bills: No Difficulty Paying for Meds: No Currently Unemployed: No Education: Trade/Vocational Certificate Difficulty w/ Childcare or Family Care: No Living arrangements: with family Occupation/Education: occupation 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
[2023-10-15 14:21] VITALS: BP 181/93; PULSE 68; RESP 16; TEMP 36.8; O2SAT 99
== END 2023-10-15 14:50 | disposition home or self-care (01) ==
PROVIDERS: Emergency Provider Nurse Practitioner Family; PCP Nurse Practitioner Adult Health
DX: B34.9 Viral infection, unspecified (principal); I10 Essential (primary) hypertension; E07.9 Disorder of thyroid, unspecified
CPT/HCPCS: 99213; G0463

== ENCOUNTER 2024-05-26 10:41 | Outpatient (CLI) | payer OTHER, SELFPAY ==
--- OUTSIDE RECORDS SUMMARY | 2024-05-26 11:59 | XMS_ITS | Clinical Summary ---
Author Organization [facility] Address [address] [place] [id number] Care Team Providers Care Brim Ironer Hand Name Role Phone Mayela Blake HAND THERAPIST Primary Care Provider [phone] Allergies No known active allergies Medications traMADol (ULTRAM) 50 MG tablet 3 Active losartan (COZAAR) 50 MG tablet 3 Active levothyroxine (SYNTHROID) 125 MCG tablet 3 Active cyclobenzaprine (FLEXERIL) 10 MG tablet 3 Active diclofenac EC (VOLTAREN) 50 MG tabletIndicatio ns:Sinus tarsi syndrome of left ankle Take 1 tablet (50 mg total) by mouth 2 (two) times daily. 60 tablet 3 Active Additional Information Patient not taking.Reported on 08/06/2022 ibuprofen (MOTRIN) 800 MG tablet Take 1 tablet (800 mg total) by mouth every 6 (six) hours as needed for Pain. Active Active Problems No known active problems Family History Medical History Relation Comments CHF Father Diabetes Father Hypertension Father Heart problems Mother Hypertension Mother Cancer Other Relation Status Comments Father Mother Other Social History Tobacco Use Types Packs/Day Years Used Date Smoking Tobacco: Never Smokeless Tobacco: Never Tobacco Cessation:Counseling Given: No Alcohol Use Standard Drinks/Week Comments Never 0 (1 standard drink = 0.6 oz pur e alcohol) PHQ-2 Answer Date Recorded Patient Health Questionnaire-2 Score 0 07/23/2022 Comments Unknown Sex and Gender Information Value Date Recorded Sex Assigned at Not on file Legal Sex Female 6:16 PM CDT Gender Identity Not on file Sexual Orientation Not on file Last Filed Vital Signs Vital Sign Reading Time Taken Comments Blood Pressure 136/82 08/06/2022 10:40 AM CDT Pulse 86 08/06/2022 10:40 AM CDT Temperature - - Respiratory Rate - - Oxygen Saturation 98% 08/06/2022 10:40 AM CDT Inhaled Oxygen Concentration - - Weight 107 kg (235 lb 14.4 oz) 08/06/2022 10:40 AM CDT Height - - Body Mass Index - - Plan of Treatment Health Maintenance Due Date Last Done Comments Cervical Cancer Screening Pa p Smear (Age 30 to 64) Every 3 Years 1966 Colorectal Cancer Screening Colonoscopy (10 Years) 1966 Annual Physical 1969 Hepatitis C 1984 DTaP, Tdap and Td Vaccines ( 1 - Tdap) 1985 Hepatitis B Vaccines (1 of 3 - 19+ 3-dose series) 1985 Cervical Cancer Screening Pa p with HPV Testing (Age 30 to 64) Every 5 Years 1996 Cervical Cancer Screening wi th HPV 1996 Mammogram Screening 2006 Zoster Vaccines (1 of 2) 2016 COVID-19 Vaccine (3 - 2023-2 5 season) 2023 02/21/2021, 01/16/2021 PHQ-2 (Physician [place]) 02/19/2024 07/23/2022 Meningococcal B Vaccine Aged Out No l onger eligible based on patient's age to complete this topic Meningococcal Vaccine Aged Out No aditya karla eligible based on patient's age to complete this topic Pneumococcal Vaccine: Pediatrics (0 to 5 Years) and At-Risk Patients (6 to 64 Years) Aged Out No longer eligible b ased on patient's age to complete this topic RSV Immunizations Under 20 Months Aged Out No longer eligible b ased on patient's age to complete this topic Insurance [employer] Care Teams Brim Ironer Hand Relationship Specialty Start Date End Date Mayela Blake, HAND THERAPIST [address] [place] [address] PCP - General NURSE PRACTITIONER 07/23/22
[2024-05-26 18:55] LABS: Add Urine Microscopic? YES; Appearance Urine Clear (Clear); Bacteria Urine 4+ /hpf; Bilirubin Urine Negative (Negative); Blood Urine 2+ (Negative); Color Urine Yellow (Yellow); Glucose Urine UA Negative (Negative); Ketones Urine Negative (Negative); Leukocyte Esterase Ur 3+ LEU/UL (Negative); Need Manual Microscopic Reviewed; Nitrate Urine Negative (Negative); Non Pathogenic Casts 0-2; Protein Urine Trace mg/dL (Negative); RBC Urine 0-2 /hpf (0-2); Specific Grav Ur 1.004 (1.001-1.035); Squamous Epithelial Cell Urine None Seen /hpf (Few); Urobilinogen Urine 0.2 mg/dL (<2.0); WBC Urine 51-100 /hpf (0-3); pH Urine 6.5 (5.0-9.0)
== END 2024-05-26 10:42 | disposition home or self-care (01) ==
PROVIDERS: PCP Nurse Practitioner Adult Health; Visit Provider Nurse Practitioner Adult Health
DX: R39.9 Unspecified symptoms and signs involving the genitourinary system (principal)
CPT/HCPCS: 81001; 87086; 87186

== ENCOUNTER 2024-06-08 15:47 | Outpatient (CLI) | payer OTHER, SELFPAY ==
[2024-06-08 16:16] LABS: Basophils Absolute Auto 0.1 K/mm3 (0.0-0.1); Eosinophils Absolute Auto 0.2 K/mm3 (0-0.3); Eosinophils Percent Auto 3.1 % (0-4.4); Hematocrit 36.4 % (37.0-47.0); Hemoglobin 12.3 g/dL (12.0-15.0); Immature Granulocyte Absolute 0.02 K/mm3 (0.00-0.031); Immature Granulocyte Percent A 0.3 % (0-0.5); Lymphocytes Absolute Auto 2.83 K/mm3 (0.9-3.2); Lymphocytes Percent Auto 42.3 % (18.3-44.2); Mean Corpuscular HGB Conc 33.8 g/dl (32-36); Mean Corpuscular Hemoglobin 29.2 pg (26-34); Mean Corpuscular Volume 86.5 fl (80-100); Mean Platelet Volume 10.1 fl (7.4-10.4); Monocytes Absolute Auto 0.4 K/mm3 (0.1-0.6); Monocytes Percent Auto 5.7 % (2.6-8.5); Neutrophils Absolute Auto 3.2 K/mm3 (1.3-6.7); Neutrophils Percent Auto 47.6 % (45.5-73.1); Platelet Count Result 253 k/mm3 (150-375); Red Blood Count 4.21 M/mm3 (4.2-5.4); Red Cell Distribution Width 12.7 % (11.5-14.5); White Blood Count 6.7 K/mm3 (4.5-10.0)
[2024-06-08 16:26] LABS: Alanine Aminotransferase 22 U/L (6-35); Albumin Level 4.2 g/dL (3.5-5.1); Alkaline Phosphatase 101 U/L (38-126); Anion Gap 11 mmol/L (4-12); Aspartate Amino Transferase 24 U/L (14-36); Bilirubin,Total 0.5 mg/dL (0.2-1.3); Blood Urea Nitrogen 11 mg/dL (7-17); Calcium 8.7 mg/dL (8.4-10.2); Carbon Dioxide 24 mmol/L (22-30); Chloride 104 mmol/L (98-107); Estimated Glomerular Filt Rate > 60; Glucose 84 mg/dL (65-110); Magnesium 2.4 mg/dL (1.6-2.3); Potassium 4.1 mmol/L (3.4-5.0); Sodium 139 mmol/L (137-145)
--- OUTSIDE RECORDS SUMMARY | 2024-06-08 17:38 | XMS_ITS | Clinical Summary ---
Author Organization [facility] Address [address] [place] [id number] Care Team Providers Care Automatic Lehr Operator Name Role Phone Mayela Blake SQL ENGINEER Primary Care Provider [phone] Allergies No known active allergies Medications traMADol [...] wi th HPV 1996 Mammogram Screening 2006 Pneumococcal Vaccine: 50+ Years (1 of 1 - PCV) 2016 Zoster Vaccines (1 of 2) 2016 COVID-19 Vaccine (3 - 2023-2 5 season) 2023 02/21/2021, 01/16/2021 PHQ-2 (Physician [place]) 02/19/2024 07/23/2022 Meningococcal B Vaccine Aged Out No l onger eligible based on patient's age to complete this topic Meningococcal Vaccine Aged Out No aditya karla eligible based on patient's age to complete this topic RSV Immunizations Under 20 Months Aged Out No longer eligible b ased on patient's age to complete this topic Insurance [employer] Care Teams Automatic Lehr Operator Relationship Specialty Start Date End Date Maylea Blake, KIRK [address] [place] [address] PCP - General NURSE PRACTITIONER 07/23/22
[2024-06-09 00:58] LABS: Free T4 Free Thyroxine Reflex 1.42 ng/dL (0.78-2.19)
[2024-06-09 06:37] LABS: Total Triiodothyronine (T3) 1.17 NG/ML (0.97-1.69)
== END 2024-06-08 15:48 | disposition home or self-care (01) ==
PROVIDERS: PCP Nurse Practitioner Adult Health; Visit Provider Nurse Practitioner Adult Health
DX: I10 Essential (primary) hypertension (principal)
CPT/HCPCS: 36415; 80053; 83735; 84439; 84443; 84480; 85025

== ENCOUNTER 2024-11-06 16:41 | Outpatient (CLI) | payer OTHER, SELFPAY ==
[2024-11-06 17:32] LABS: Hemoglobin A1C 5.7 % (<5.7)
[2024-11-06 18:00] LABS: Thyroid Stimulating Hormone 0.339 uIU/mL (0.465-4.680)
== END 2024-11-06 16:42 | disposition home or self-care (01) ==
PROVIDERS: PCP Nurse Practitioner Adult Health; Visit Provider Nurse Practitioner Adult Health
DX: E07.9 Disorder of thyroid, unspecified (principal); E66.9 Obesity, unspecified; Z68.38 Body mass index [BMI] 38.0-38.9, adult
CPT/HCPCS: 36415; 83036; 84443

== ENCOUNTER 2025-01-20 16:02 | Outpatient (CLI) | payer OTHER, SELFPAY ==
--- OUTSIDE RECORDS SUMMARY | 2025-01-20 17:05 | XMS_ITS | Clinical Summary ---
Author Organization [facility] Address [address] [place] [address] Care Team Providers Care Currency Machine Operator Name Role Phone Mayela Blake CHIEF PASSENGER SHIP STEWARD/STEWARDESS Primary Care Provider [phone] Allergies No known active allergies Medications traMADol [...] of 2) 2016 COVID-19 Vaccine (3 - 2024-2 6 season) 2024 02/21/2021, 01/16/2021 Influenza Adult (#1) 2024 Hepatitis A Vaccines Aged Out No long er eligible based on patient's age to complete this topic Meningococcal B Vaccine Aged Out No l onger eligible based on patient's age to complete this topic Meningococcal Vaccine Aged Out No aditya karla eligible based on patient's age to complete this topic RSV Immunizations Under 20 Months Aged Out No longer eligible b ased on patient's age to complete this topic Insurance [employer] Care Teams Currency Machine Operator Relationship Specialty Start Date End Date Mayela Blake, KIRK PCP - General NURSE PRACTITIONER 07/23/22
[2025-01-20 17:33] LABS: Thyroid Stimulating Hormone 5.320 uIU/mL (0.465-4.680)
== END 2025-01-20 16:03 | disposition home or self-care (01) ==
PROVIDERS: PCP Nurse Practitioner Adult Health; Visit Provider Nurse Practitioner Adult Health
DX: E07.9 Disorder of thyroid, unspecified (principal)
CPT/HCPCS: 36415; 84443